=== PATIENT | male | born 1935 | race Caucasian/White ===

== ENCOUNTER 2016-02-29 07:21 | Day surgery (SDC) | payer MEDICARE ==
[~2016-02-29 07:21] MED LIST: FENTANYL 100 MCG/2 ML VIAL ONE; GLYCOPYRROLATE 0.2 MG/ML 1ML VIAL ONE; IV START KIT ONE; LACTATED RINGERS 1,000 ML ONE; LIDOCAINE 2% (PRES FREE) 5 ML VIAL ONE; ONDANSETRON 4 MG/2ML 2 ML VIAL ONE; PROPOFOL 20 ML IV ONE; SUCCINYLCHOLINE CHL 20 MG/ML DOSE ONE
[2016-02-29] MEDS ORDERED: CEFAZOLIN SODIUM 2 GRAM PREMIX 100 ML IV PRN (07:30)
[2016-02-29] MEDS ORDERED: CEFAZOLIN SODIUM 1 GRAM PREMIX 50 ML IV ONE (08:23)
[2016-02-29] MEDS ORDERED: IOPAMIDOL 300 (61%) 30 ML SDV ONE (08:28)
[2016-02-29] MEDS ORDERED: CEFOTAXIME SODIUM 1,000 MG VIAL ONE (08:28)
[2016-02-29] MEDS ORDERED: SODIUM CHLORIDE 0.9% FLUSH 0 ML ONE (08:28)
[2016-02-29] MEDS ORDERED: SODIUM CHLORIDE 0.9% 50 ML ONE (08:29)
[2016-02-29] MEDS ORDERED: BUPIVACAINE 0.25% EPI PF 30 ML VIAL ONE (08:29)
[2016-02-29] MEDS ORDERED: EPHEDRINE SULFATE UD SYR 25 MG 25 MG/5 ML SYRINGE IV ONE ×2 (09:07→09:24)
[2016-02-29] MEDS ORDERED: ROCURONIUM BROMIDE 10 MG/ML DOSE IV ONE (09:23)
[2016-02-29] MEDS ORDERED: PHENYLEPHRINE 10 MG/1 ML (1%) VIAL ONE (09:37)
[2016-02-29] MEDS ORDERED: SODIUM CHLORIDE 0.9% 100 ML IV ONE (09:37)
[2016-02-29] MEDS ORDERED: SURGICEL 3X4 1 EACH PACKET ONE (09:49)
[2016-02-29] MEDS ORDERED: FENTANYL 100 MCG/2 ML VIAL ONE (10:05)
[2016-02-29] MEDS ORDERED: PROMETHAZINE HCL 25 MG/ML VIAL IM PRN (10:28)
[2016-02-29] MEDS ORDERED: ONDANSETRON 4 MG/2ML 2 ML VIAL IV PRN ×2 (10:28→11:29)
[2016-02-29] MEDS ORDERED: NALOXONE HCL 0.4 MG/ML VIAL IV PRN (10:28)
[2016-02-29] MEDS ORDERED: ATROPINE SULFATE 0.4 MG/1 ML VIAL IV PRN (10:28)
[2016-02-29] MEDS ORDERED: LACTATED RINGERS 1,000 ML IV SCH (10:30)
--- NOTE | 2016-02-29 10:30 | RAD ---
EXAMINATION:CHOLANGIOGRAM-OPERATIVE TECHNIQUE: Fluoroscopic assistance was provided for Fluoroscopy time: 30 seconds Number of images: 3 FINDINGS: Operative cholangiogram exhibits opacification of the common bile duct via injection of cystic duct catheter. Contrast is noted within the duodenum. No obstructing calculi are appreciated in the visualized opacified segments. IMPRESSION: Fluoroscopic assistance provided as described above. No evidence of distal common bile duct obstruction.
[2016-02-29] MEDS: FENTANYL 100 MCG/2 ML VIAL IV PRN ×2 (10:40→10:45)
[2016-02-29] MEDS: MORPHINE SULFATE 4 MG/ML SYRINGE IV PRN ×10 (10:52→23:01)
[2016-02-29] MEDS ORDERED: ALPRAZOLAM 0.25 MG TABLET PO PRN (11:29)
[2016-02-29] MEDS ORDERED: MORPHINE SULFATE 2 MG/ML SYRINGE IV PRN (11:29)
[2016-02-29] MEDS ORDERED: MORPHINE SULFATE 10 MG/ML SYRINGE IV PRN (11:41)
[2016-02-29] MEDS ORDERED: PUMP TUBING ONE (11:51)
[2016-02-29] MEDS: LACTATED RINGERS 1,000 ML IV SCH ×2 (11:57→14:40)
[2016-02-29 12:09] VITALS: BMI 31.1
--- NOTE | 2016-02-29 19:04 | OP ---
HELIO MONTELONGO [id number] DATE OF OPERATION: February 29, 2016 PREOPERATIVE DIAGNOSIS: Chronic cholecystitis with cholelithiasis. POSTOPERATIVE DIAGNOSIS: Chronic cholecystitis with cholelithiasis. PROCEDURE: LAPAROSCOPIC CHOLECYSTECTOMY WITH INTRAOPERATIVE CHOLANGIOGRAM. SURGEON: Sathish Diehl M.D. FABRIC DESIGNER: Bronwyn Ambrocio ANESTHESIA: General endotracheal by Ambrose CowanRRolyN.Amalia INDICATIONS: This is an 80-year-old male who has symptoms of chronic biliary colic who presents for elective cholecystectomy. DESCRIPTION: With informed consent he was taken to the operating room where he was laid supine on the operating room table. General endotracheal anesthetic was administered. The abdomen was prepped and draped in the usual fashion. Local anesthetic was administered below the umbilicus. An incision was made. The fascia was grasped with Dayana clamps and divided with curved Garcia scissors. Sutures of Surgilon were placed in the fascial edges, and a Kem port was placed. A pneumoperitoneum was created. Local anesthetic was administered in the mid epigastrium and along the right lateral abdominal wall. Incisions were made and 5 mm ports were placed. The fundus of the gallbladder was grasped and retracted cephalad. There were adhesions down along the entire body of the gallbladder. This was carefully dissected free. There was mild oozing which was cauterized. Eventually the infundibulum was retracted laterally. I first identified the cystic artery. This was dissected free. Three clips were placed, and it was transected leaving two clips on the stump. Next the cystic duct was identified and dissected free in complete critical view. A clip was placed near the gallbladder. The duct was partially transected. A cholangiogram catheter was placed. Cholangiogram was obtained showing flow of contrast into the duodenum without filling defect. Contrast was seen refluxing up into the hepatic duct. The catheter was removed. Two clips were placed on the cystic duct stump and it was completely transected. The gallbladder was taken off the liver bed using electrocautery. Once , it was placed within an EndoCatch bag and removed through the infraumbilical port site. The right upper quadrant was irrigated. We did have some oozing from the liver bed. This was cauterized. The patient did have an INR of 1.6, and so I did choose to place some Surgicel in the area as well. We had good hemostasis at conclusion. The ports were removed, and the pneumoperitoneum was evacuated. The infraumbilical fascial defect was closed with [id number] sutures of #0 Surgilon. The other fascial defects were small. All skin wounds were closed with subcuticular #4-0 Monocryl. Mastisol and SteriStrips were placed. Sterile dressings were applied. He tolerated the procedure and was taken to the recovery room in stable condition. Note was made that needle, instrument and lap counts were reported as correct at time of closure. Cc: Jax Ponce M.D.
[2016-03-01] MEDS: MORPHINE SULFATE 4 MG/ML SYRINGE IV PRN ×3 (02:33→20:18)
[2016-03-01] MEDS: LACTATED RINGERS 1,000 ML IV SCH ×2 (04:01→20:04)
[2016-03-01 06:17] LABS: HEMATOCRIT 38.6 % (32.0-52.0); HEMOGLOBIN 12.2 gm/l (14.0-18.0); MEAN CORPUSCULAR HEMOGLOBIN 30.3 pg (27.0-31.0); MEAN CORPUSCULAR HGB CONC 31.6 g/dl (33.0-37.0)
[2016-03-01 06:36] LABS: ALB/GLOB RATIO 1.2 (>1.0); ALBUMIN 3.6 gm/dL (3.5-5.7); CALCIUM 8.8 mg/dL (8.6-10.3)
[2016-03-01] MEDS ORDERED: IBUPROFEN 600 MG TABLET PO PRN (07:40)
--- NOTE | 2016-03-01 07:43 | PDOC43 ---
- Subjective Subjective: Reports Flatus, Denies Pain Tolerable, Denies Nausea - Objective Vital Signs Temperature 98.2 F 03/01/16 07:17 Pulse Rate 90 03/01/16 07:17 Respiratory Rate 18 03/01/16 07:17 Blood Pressure 137/74 03/01/16 07:17 O2 Saturation by Pulse Oximetry 99 03/01/16 07:17 Oxygen Delivery Method Nasal Cannula Oxygen Flow Rate 2 Laboratory 03/01/16 05:30 03/01/16 05:30 03/01/16 05:30 RBC 4.02 L MCV 96.0 H MCHC 31.6 L Total Bilirubin 1.3 H Active Medication Orders Category Date Time Status Acetaminophen [Tylenol] Med 02/29/16 11:29 Active 650 mg PO Q6H PRN Alprazolam [Xanax] Med 02/29/16 11:29 Active 0.25 mg PO PRN PRN Atropine Sulfate Med 02/29/16 10:28 Active 0.2 mg IV X1 PRN Fentanyl Med 02/29/16 10:28 Active 50 mcg IV Q5M PRN Furosemide [Lasix] Med 03/01/16 09:00 Active 20 mg PO DAILY Ibuprofen [Motrin] Med 03/01/16 07:40 Ordered 600 mg PO TID PRN Lactated Ringers 1,000 ml Med 02/29/16 11:29 Active IV 75 mls/hr Levothyroxine Sodium [Levothroid] Med 03/01/16 09:00 Active 150 mcg PO DAILY Lisinopril [Prinivil] Med 03/01/16 09:00 Active 20 mg PO DAILY Morphine Sulfate Med 02/29/16 11:29 Active 1 - 6 mg IV Q1H PRN Morphine Sulfate Med 02/29/16 11:41 Active 1 - 6 mg IV Q1H PRN Morphine Sulfate Med 02/29/16 11:41 Active 1 - 6 mg IV Q1H PRN Morphine Sulfate Med 02/29/16 10:28 Active 2 mg IV Q5M PRN Naloxone HCl [Narcan] Med 02/29/16 10:28 Active 0.2 mg IV X1 PRN Ondansetron 4 mg/2ml Vial [Zofran] Med 02/29/16 11:29 Active 4 mg IV Q6H PRN Ondansetron 4 mg/2ml Vial [Zofran] Med 02/29/16 10:28 Active 4 mg IV X1 PRN Oxycodone HCl [Roxicodone] Med 02/29/16 11:29 Active 5 - 10 mg PO Q4H PRN Promethazine HCl [Phenergan] Med 02/29/16 10:28 Active 12.5 - 25 mg IM X1 PRN Sodium Chloride 0.9% Flush [Normal Saline 10ml Flush] Med 02/29/16 11:42 Active 10 ml IV PRN PRN Sodium Chloride 0.9% Flush [Normal Saline 10ml Flush] Med 02/29/16 17:00 Active 10 ml IV Q8HR Intake and Output 02/29/16 03/01/16 03/02/16 06:59 06:59 06:59 Intake Total 3341 Output Total 590 Balance 2751 General: Alert, Oriented x3 Abdomen: Soft, Non-Distended Wound: Dressing Clean/Dry/Intact - Assessment/ Plan (1) Cholecystitis with cholelithiasis Status: Acute Assessment/ Plan: Home today if pain tolerable on oral pain meds.
[2016-03-01] MEDS: OXYCODONE HCL 5 MG TABLET PO PRN ×4 (08:00→21:56)
[2016-03-01] MEDS: FUROSEMIDE 20 MG TABLET PO SCH (08:45)
[2016-03-01] MEDS: LEVOTHYROXINE SODIUM 150 MCG TABLET PO SCH (08:45)
[2016-03-01] MEDS: LISINOPRIL 20 MG TABLET PO SCH (08:45)
[2016-03-01] MEDS: ACETAMINOPHEN 325 MG TABLET PO PRN (16:51)
[2016-03-01] MEDS: DOCUSATE SODIUM 100 MG CAPSULE PO SCH (21:56)
[2016-03-02] MEDS: ACETAMINOPHEN 325 MG TABLET PO PRN (02:02)
[2016-03-02] MEDS: OXYCODONE HCL 5 MG TABLET PO PRN ×2 (02:02→06:06)
[2016-03-02] MEDS: LACTATED RINGERS 1,000 ML IV SCH (05:17)
[2016-03-02 06:23] LABS: HEMOGLOBIN 11.5 gm/l (14.0-18.0); MEAN CELL VOLUME 96.4 fl (80.0-94.0); MEAN CORPUSCULAR HEMOGLOBIN 29.9 pg (27.0-31.0); MEAN CORPUSCULAR HGB CONC 31.1 g/dl (33.0-37.0); RED CELL DISTRIBUTION WIDTH 14.4 % (11.5-14.5)
[2016-03-02 07:10] VITALS: BP 134/69
[2016-03-02 07:21] LABS: ALB/GLOB RATIO 1.4 (>1.0); ALBUMIN 3.4 gm/dL (3.5-5.7); CALCIUM 8.8 mg/dL (8.6-10.3)
[2016-03-02] MEDS: DOCUSATE SODIUM 100 MG CAPSULE PO SCH (09:20)
[2016-03-02] MEDS: LISINOPRIL 20 MG TABLET PO SCH (09:20)
[2016-03-02] MEDS: LEVOTHYROXINE SODIUM 150 MCG TABLET PO SCH (09:20)
[2016-03-02] MEDS: FUROSEMIDE 20 MG TABLET PO SCH (09:20)
--- NOTE | 2016-03-02 10:46 | SURGPATH ---
[facility], [facility]. [address] [place] [id number] Patient Name: HELIO MONTELONGO MR#: [id number] : 1935 Gender: M Specimen #: [id number] Collected: 02/29/2016 Received: 03/01/2016 Reported: 03/02/2016 Submitting Phys: CHINMAY MCNULTY Copy To Phys: ALENA CLOUD [facility] Clinical History / Pre-Operative Diagnosis: GALLSTONES Specimen Source / Surgical Procedure Performed: GALLBLADDER Interpretation: GALLBLADDER, CHOLECYSTECTOMY: - CHRONIC CHOLECYSTITIS. CHOLELITHIASIS. 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 Transformation is not identified in this material. Electronically Signed Out Zay Womack M.D. Gross Description: The specimen is received in a formalin filled container labeled with the patient's name and "gallbladder". A previously incisede, ngorged gallbladder is 9.0 x 3.0 cm. The wall averages 0.3 cm. The mucosa is kevin green and velvety. There is no nodule or induration. The lumen contains thick bile and multiple multifaceted, smooth black calculi up to 0.6 cm. Pediatric Social Worker in one cassette. Peter Lora Microscopic Description: Sections show chronic cholecystitis. In addition, the wall is thickened by a dense monotonous small lymphocyte population. Lymphocytes are small to medium-sized, round with clumped chromatin and show some slightly larger cells with prominent nucleoli representing growth centers. 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 No features of transformation are identified in this material. 1: [id number] K81.1
== END 2016-03-02 10:03 | disposition home or self-care (01) ==
LOC: SDC 07:21 → MS 11:29 → SDC 03-02 10:03
PROVIDERS: ATTEND Surgery
PROC: 0FT44ZZ Resection of Gallbladder, Percutaneous Endoscopic Approach (ICD-10-PCS; principal; 2016-02-29)
PROC: BF141ZZ Fluoroscopy of Gallbladder, Bile Ducts and Pancreatic Ducts using Low Osmolar Contrast (ICD-10-PCS; 2016-02-29)
DX: K80.10 Calculus of gallbladder with chronic cholecystitis without obstruction (principal); I48.91 Unspecified atrial fibrillation; I25.10 Atherosclerotic heart disease of native coronary artery without angina pectoris; C91.10 Chronic lymphocytic leukemia of B-cell type not having achieved remission; K44.9 Diaphragmatic hernia without obstruction or gangrene; K29.90 Gastroduodenitis, unspecified, without bleeding; E07.9 Disorder of thyroid, unspecified; F41.9 Anxiety disorder, unspecified; R01.1 Cardiac murmur, unspecified; Z88.0 Allergy status to penicillin; Z88.1 Allergy status to other antibiotic agents; Z88.8 Allergy status to other drugs, medicaments and biological substances; Z86.010 Personal history of colon polyps
CPT/HCPCS: 47563; 85027 ×2; 80053 ×2; 36415 ×2; 74300; 86901; 86850 ×3; 94010; J0690; A9270 ×13; J3010 ×3; J2270 ×11; J2370; J2405 ×2; J7120 ×3; J7030; J7050; Q9967